=== PATIENT | male | born 1960 ===

== ENCOUNTER 2018-06-18 08:41 | Day surgery (SDC) | payer OTHER | END 2018-06-18 13:25 | disposition home or self-care (01) | LOC: AMB-ENDOS 08:41 | DX: K80.50 Calculus of bile duct without cholangitis or cholecystitis without obstruction (principal); K80.20 Calculus of gallbladder without cholecystitis without obstruction ==

== ENCOUNTER 2018-07-15 05:58 | Day surgery (SDC) | payer OTHER ==
[~2018-07-15 05:58] MED LIST: IRBESARTAN150 MG PO; SYNTHROID175 MCG PO; TOPROL XL25 MG PO
[2018-07-15] MEDS ORDERED: ULTRACET PO (12:43)
[2018-07-15] MEDS ORDERED: POLY119PG PO (12:44)
[2018-07-15] MEDS ORDERED: CIPRO500 MG PO (12:44)
== END 2018-07-15 14:50 | disposition home or self-care (01) ==
LOC: CIR.AMB 05:58
DX: K80.10 Calculus of gallbladder with chronic cholecystitis without obstruction (principal); K42.9 Umbilical hernia without obstruction or gangrene